=== PATIENT | male | born 1995 | race Two or more races ===

== ENCOUNTER 2022-01-24 08:56 | Emergency (ER) | payer MEDICAID, OTHER ==
[~2022-01-24] VITALS: Ht 170.2 cm; Wt 67.1 kg
[2022-01-24 10:03] VITALS: BP 118/71
[2022-01-24] MEDS ORDERED: CEPH-509 PO (10:30)
== END 2022-01-24 10:49 | disposition home or self-care (01) ==
LOC: ER 08:56
DX: L73.9 Follicular disorder, unspecified (principal); Z79.899 Other long term (current) drug therapy